=== PATIENT | female | born 2000 | race Hispanic/Latino ===

== ENCOUNTER 2025-07-13 21:52 | Emergency (ER) | payer OTHER ==
[2025-07-13] MEDS ORDERED: Lidocaine Viscous Sol 2% 15 ml UD Cup ONE (22:09)
[2025-07-13] MEDS ORDERED: Mag-Al 1200 mg/1200 mg/30 ML UDCUP ONE (22:10)
[2025-07-13 22:28] LABS: CAUTI Indications for Culture Dysuria,urgency,freq; Glucose, Urine (Dipstick) Normal (Negative); Leukocyte Negative Leu/uL (Negative); Protein, Urine (Dipstick) Negative (Neg-Trace); Specific Gravity, Urine 1.001 (1.002-1.036); WBC/HPF 0-3 HPF (0-3)
[2025-07-13 22:29] LABS: Bacteria/HPF 1+ HPF (None Seen)
[2025-07-13 22:31] LABS: Urine Culture Reflex No No
[2025-07-13 22:53] LABS: Pregnancy Test - Urine (BHCG) Negative (Negative); Pregu Control Background? CLEAR/WHITE (CLR/WHITE); Pregu Control Bar Appear? YES (CONTROL BAR)
== END 2025-07-13 23:29 | disposition left against medical advice (07) ==
LOC: ERS 21:52
DX: Z53.21 Procedure and treatment not carried out due to patient leaving prior to being seen by health care provider (principal)
CPT/HCPCS: 81001; 81025